=== PATIENT | female | born 1990 | race Caucasian/White ===

== ENCOUNTER 2019-04-15 18:09 | Inpatient (IN) | payer SELFPAY ==
[~2019-04-15] VITALS: Ht 165.1 cm; Wt 45.5 kg
--- NOTE | 2019-04-15 18:30 | NUR ---
transfered from [facility], see charting for neuro about arms. pt resting in bed, arrived to bedside.
--- NOTE | 2019-04-15 18:55 | NUR ---
report given to karma alexander.
--- NOTE | 2019-04-15 18:56 | NUR ---
REPORT RECEIVED FROM MELISSA ALLEN. PT RESTING ON [place] WITH FAMILY AT BS. PT UPDATED ON POC. MONITORING IN PLACE, CALL LIGHT WITHIN REACH, ALL SAFETY MEASURES IN PLACE, ROOM DIMMED FOR PT COMFORT.
--- NOTE | 2019-04-15 19:15 | NUR ---
PT TO CT.
[2019-04-15] MEDS ORDERED: GADOTERATE 7.5 MMOL/15 ML SYR ONE (20:16)
--- NOTE | 2019-04-15 20:27 | NUR ---
PT STILL AT CT.
--- NOTE | 2019-04-15 20:38 | NUR ---
PT BACK TO ROOM FROM CT. PT PASSED DYSPHAGIA SCREEN. UPDATED ON POC, VSS. FAMILY AT BS FOR SUPPORT.
--- NOTE | 2019-04-15 21:49 | NUR ---
FIRST ATTEMPT TO CALL REPORT
[2019-04-15 22:31] VITALS: BP 101/68
[2019-04-16 00:53] LABS: BASOPHILS # (AUTO) 0.01 x10^3/uL (0-0.1); BASOPHILS % (AUTO) 0 % (0-1); EOSINOPHILS % (AUTO) 0 % (1-7); LYMPHOCYTES # (AUTO) 0.65 x10^3/uL (1-3.4); LYMPHOCYTES % (AUTO) 19 % (22-44); MD NO; MEAN CORPUSCULAR HEMOGLOBIN 31.8 pg (27.0-34.8); MEAN CORPUSCULAR HGB CONC 34.3 g/dL (32.4-35.8); MEAN CORPUSCULAR VOLUME 92.7 fL (80-100); MEAN PLATELET VOLUME 8.8 fL (7.4-10.4); MONOCYTES % (AUTO) 9 % (2-9); NEUTROPHILS # (AUTO) 2.46 x10^3/uL (1.8-6.8); NEUTROPHILS % (AUTO) 72 % (42-75); PLATELET COUNT 194 x10^3/uL (130-400); RED BLOOD COUNT 4.31 x10^6/uL (3.82-5.3); RED CELL DISTRIBUTION WIDTH 11.7 % (9.6-15.2)
[2019-04-16] MEDS ORDERED: ENOXAPARIN 40 MG/0.4 ML SQ SCH (01:00)
[2019-04-16] MEDS ORDERED: PROMETHAZINE 25 MG/ML, 1ML IM PRN (01:00)
[2019-04-16] MEDS ORDERED: ONDANSETRON 2MG/ML, 2ML IVPush PRN (01:00)
[2019-04-16] MEDS ORDERED: ACETAMINOPHEN 325 MG TABLET PO PRN (01:00)
[2019-04-16 01:18] LABS: ALANINE AMINOTRANSFERASE 178 U/L (12-78); ALBUMIN 3.6 g/dL (3.4-5.0); ANION GAP 11 mmol/L (5-15); C-REACTIVE PROTEIN, QUANT 0.91 mg/dL (0.02-0.49); CALCIUM 8.3 mg/dL (8.5-10.1); CHLORIDE 109 mmol/L (98-107)
[2019-04-16 01:21] LABS: ALKALINE PHOSPHATASE 144 U/L (45-117); BILIRUBIN,TOTAL 0.3 mg/dL (0.2-1.0); CREATINE KINASE, TOTAL 58 U/L (26-192); CREATININE 0.68 mg/dL (0.55-1.02); TOTAL PROTEIN 7.6 g/dL (6.4-8.2)
[2019-04-16 01:34] LABS: MICROSCOPIC NOT IND
[2019-04-16 01:39] LABS: CULTURE INDICATED? NO; HCG UR SG 1.022 (1.003-1.030)
[2019-04-16 01:45] LABS: % IRON SATURATION 11 % (20-55); IRON LEVEL 30 mcg/dL (50-170); TOTAL IRON BINDING CAPACITY 270 mcg/dL (250-450)
[2019-04-16 01:58] VITALS: BP 102/62
[2019-04-16 02:06] VITALS: BP 102/62
[2019-04-16 02:35] LABS: RAPID INFLUENZA A Negative (Negative); RAPID INFLUENZA B Negative (Negative)
[2019-04-16 05:54] VITALS: BP 104/68
[2019-04-16 07:37] VITALS: BP 101/68
[2019-04-16] MEDS ORDERED: OXYcodone IR 5MG TABLET PO PRN (08:00)
[2019-04-16] MEDS ORDERED: IBUP-1221 PO (12:51)
[2019-04-16 14:07] VITALS: BP 101/63
[2019-04-16] MEDS ORDERED: FLU VACC QS2019-20 36MOS UP/PF 0.5 ML IM-VACC ONE (14:30)
== END 2019-04-16 14:40 | disposition home or self-care (01) | DRG 92 ==
LOC: ED 20:44 → EDIP 21:28 → 3N 22:18 → DCLOUNGE 04-16 14:38
PROVIDERS: ADMIT Internal Medicine; ATTEND Internal Medicine
DX: G72.9 Myopathy, unspecified (principal); E46 Unspecified protein-calorie malnutrition; Z68.1 Body mass index [BMI] 19.9 or less, adult; E87.2 Acidosis; G43.109 Migraine with aura, not intractable, without status migrainosus; B34.9 Viral infection, unspecified; D72.819 Decreased white blood cell count, unspecified; F17.200 Nicotine dependence, unspecified, uncomplicated; G62.9 Polyneuropathy, unspecified; Z23 Encounter for immunization
CPT/HCPCS: 36415; 70553; 71045; 72156; 76700; 80053; 80074; 81003; 81025; 82550; 83540; 83550; 84145; 84443; 85025; 85651; 86140; 87081; 87147; 87400; 87880; 90686; 99285; G0378; J1650; A9575